=== PATIENT | female | born 1990 | race Caucasian/White ===

== ENCOUNTER 2017-05-13 10:26 | Emergency (ER) | payer SELFPAY ==
[~2017-05-13] VITALS: Ht 167.6 cm; Wt 96.6 kg
[2017-05-13 11:08] VITALS: BP 148/80
[2017-05-13] MEDS ORDERED: cefTRIAXone SOD 1,000 MG VL IM ONE (11:45)
== END 2017-05-13 12:28 | disposition home or self-care (01) ==
LOC: ER 10:26
DX: L70.0 Acne vulgaris (principal); B99.9 Unspecified infectious disease
CPT/HCPCS: 96372; 99283; J0696